=== PATIENT | female | born 1985 | race Caucasian/White ===

== ENCOUNTER 2016-04-14 05:44 | Emergency (ER) | payer MEDICAID, OTHER ==
[2016-04-14 05:54] VITALS: BP 119/83
[2016-04-14 06:32] LABS: Urine Bacteria Absent (Absent); Urine Bilirubin Negative (Negative); Urine Glucose Negative (Negative); Urine Nitrite Positive (Negative)
[2016-04-14] MEDS ORDERED: Phenazopyridine TAB* 100 MG PO ONE ×2 (06:42)
[2016-04-14] MEDS ORDERED: Sulfamethox/Trimethoprim DS 800/160* TAB PO ONE ×2 (06:42)
--- NOTE | 2016-04-17 08:10 | ED ---
GI/ HPI - HPI Summary HPI Summary: Pt here w/ UTI sx since early this morning - burning, frequency w/ urination. She gets these frequently if she doesn't perform her post coital cleaning regimen which she did not do recently. Denies fever, chills, flank pain, ab pain , N/V/D. No vaginal d/c. Has not tried anything yet - just wants to get tx started so she can feel better. - History of Current Complaint Chief Complaint: EDUrogenitalProblems Time Seen by Provider: 04/14/16 06:35 Stated Complaint: BLOODY URINE/BURNING Hx Obtained From: Patient Pain Intensity: 7 - Allergy/Home Medications Allergies/Adverse Reactions: Allergies Allergy/AdvReac Type Severity Reaction Status Date / Time No Known Allergies Allergy Verified 04/04/15 09:20 PMH/Surg Hx/FS Hx/Imm Hx Previously Healthy: Yes Endocrine/Hematology History: Denies: Hx Diabetes, Hx Thyroid Disease, Autoimmune Disease Cardiovascular History: Denies: Hx Hypertension Respiratory History: Denies: Hx Asthma, Hx Chronic Obstructive Pulmonary Disease (COPD) GI History: Denies: Hx Ulcer History: Reports: Hx Kidney Infection Denies: Hx Kidney Stones Infectious Disease History: No Infectious Disease History: Denies: Hx Hepatitis, Hx Human Immunodeficiency Virus (HIV), History Other Infectious Disease, Traveled Outside the [place] in Last 30 Days - Family History Known Family History: Positive: Hypertension - Social History Lives: With Family Alcohol Use: Daily Alcohol Amount: a glass of wine Hx Substance Use: No Substance Use Type: Reports: None Smoking Status (MU): Current Every Day Smoker Type: Cigarettes Amount Used/How Often: 1/2 ppd Have You Smoked in the Last Year: Yes Review of Systems Negative: Fever, Chills Negative: Sore Throat Negative: Chest Pain Negative: Shortness Of Breath Gastrointestinal: Negative Positive: see HPI Musculoskeletal: Negative Skin: Negative Neurological: Negative Psychological: Normal All Other Systems Reviewed And Are Negative: Yes Physical Exam Triage Information Reviewed: Yes Vital Signs On Initial Exam: Initial Vitals Temp Pulse Resp BP Pulse Ox 97.9 F 97 18 119/83 99 04/14/16 05:48 04/14/16 05:48 04/14/16 05:48 04/14/16 05:48 04/14/16 05:48 Vital Signs Reviewed: Yes Appearance: Positive: Well-Appearing, No Pain Distress, Well-Nourished Skin: Positive: Warm, Dry Head/Face: Positive: Normal Head/Face Inspection Eyes: Positive: Normal, EOMI, Conjunctiva Clear - anicteric sclera ENT: Positive: Hearing grossly normal, Pharynx normal - mucosa moist Respiratory/Lung Sounds: Positive: Clear to Auscultation, Breath Sounds Present Cardiovascular: Positive: Normal, RRR Abdomen Description: Positive: Nontender, No Organomegaly, Soft. Negative: CVA Tenderness (R), CVA Tenderness (L) Bowel Sounds: Positive: Present Pelvic Exam: Positive: other - deferred Musculoskeletal: Positive: Normal, Strength/ROM Intact Neurological: Positive: Normal, Sensory/Motor Intact, Alert, Oriented to Person Place, Time, CN Intact II-III Psychiatric: Positive: Normal - [place] Coma Scale Coma Scale Total: 15 Diagnostics - Vital Signs Vital Signs Temp Pulse Resp BP Pulse Ox 04/14/16 05:48 97.9 F 97 18 119/83 99 - Laboratory Lab Results: Lab Results 04/14/16 Range/Units 06:00 Urine Color [place] Urine Appearance Cloudy Urine pH 5.0 (5-9) Ur Specific [place] 1.018 (1.010-1.030) Urine Protein 2+(100 mg/dl) H (Negative) Urine Ketones Negative (Negative) Urine Blood 3+ H (Negative) Urine Nitrate Positive H (Negative) Urine Bilirubin Negative (Negative) Urine Urobilinogen Negative (Negative) Ur Leukocyte Esterase 3+ H (Negative) Urine WBC (Auto) 3+(>20/hpf) H (Absent) Urine RBC (Auto) 3+(>10/hpf) H (Absent) Ur Squamous Epith Cells Present H (Absent) Urine Bacteria Absent (Absent) Urine Glucose Negative (Negative) Lab Statement: Any lab studies that have been ordered have been reviewed, and results considered in the medical decision making process. GIGU Course/Dx - Diagnoses Provider Diagnoses: UTI (urinary tract infection) Discharge - Discharge Plan Condition: Stable Disposition: HOME Prescriptions: Sulfamethox/Trimethoprim DS* [Bactrim DS 800/160 TAB*] 1 tab PO BID #9 tab Patient Education Materials: Urinary Tract Infection in Women (ED) Referrals: [facility] [Outside] No Primary Care Phys,NOPCP [Primary Care Provider] - Additional Instructions: Follow-up with PCP if symptoms persist or worsen. *If you develop fever, chills, ab pain, back pain, return to ED
--- NOTE | 2016-04-17 08:11 | ED ---
Progress - Progress Note Progress Note: Pt's urine cx reveals e. coli bacteria - she was started on basctrim DS to which organism is sensitive. No change in medication. Complete course and f/u as directed. Course/Dx - Diagnoses Provider Diagnoses: UTI (urinary tract infection)
== END 2016-04-14 06:54 | disposition home or self-care (01) ==
LOC: ED 05:44
DX: N39.0 Urinary tract infection, site not specified (principal); B96.20 Unspecified Escherichia coli [E. coli] as the cause of diseases classified elsewhere; F17.210 Nicotine dependence, cigarettes, uncomplicated
CPT/HCPCS: 81003; 81015; 87077; 87086; 87186; 99282; A9270-GY

== ENCOUNTER 2016-07-19 11:59 | Emergency (ER) | payer MEDICAID ==
--- NOTE | 2016-07-19 12:54 | UC ---
Dizzy HPI HPI Summary: patient was traveling in a car, started to feel very lightheaded and dizzy. has hx of IBS, has had some diarrhea the past few days was experiencing some GI cramping and became very dizzy.. Po intake has been minimal, patient is worried she is dehydrated.Since her arrival she is not feeling dizzy anymore. she is tolerating water well - History Of Current Complaint Chief Complaint: UCAbdominalPain Stated Complaint: ABD PAIN AND LIGHTHEADED Time Seen by Provider: 07/19/16 12:39 Hx Obtained From: Patient Hx Last Menstrual Period: 07/11/16 took morning after pill ?: No Onset/Duration: Sudden Onset, Lasting Minutes Timing: Minutes Severity Initially: Severe Severity Currently: Mild Character: Lightheaded, Weak Aggravating Factor(s): Exertion Alleviating Factor(s): Rest, Lying Down - Allergies/Home Medications Allergies/Adverse Reactions: Allergies Allergy/AdvReac Type Severity Reaction Status Date / Time No Known Allergies Allergy Verified 04/04/15 09:20 Home Medications: Home Medications NK [No Home Medications Reported] 07/19/16 [History Confirmed 07/19/16] PMH/Surg Hx/FS Hx/Imm Hx Previously Healthy: Yes Endocrine History Of: Denies: Diabetes, Thyroid Disease Cardiovascular History Of: Denies: Cardiac Disorders, Hypertension Respiratory History Of: Denies: COPD, Asthma GI/ History Of: Denies: Ulcer, Kidney Stones - Surgical History Surgical History: None - Family History Known Family History: Positive: Hypertension - Social History Alcohol Use: Weekly Alcohol Amount: a glass of wine Substance Use Type: None Smoking Status (MU): Current Every Day Smoker Type: Cigarettes Amount Used/How Often: 1/2 ppd Length of Time of Smoking/Using Tobacco: would like RX for Chantix Have You Smoked in the Last Year: Yes Household Exposure Type: Cigarettes - Immunization History Most Recent Influenza Vaccination: 03/03/14 Most Recent Tetanus Shot: 03/27/14 Most Recent Pneumonia Vaccination: none Review of Systems Constitutional: Negative Skin: Negative Eyes: Negative ENT: Negative Respiratory: Negative Cardiovascular: Negative Gastrointestinal: Abdominal Pain, Diarrhea Genitourinary: Negative Motor: Negative Neurovascular: Negative Musculoskeletal: Negative Neurological: Negative Psychological: Negative All Other Systems Reviewed And Are Negative: Yes Physical Exam Triage Information Reviewed: Yes Appearance: No Pain Distress, Well-Nourished, Ill-Appearing Vital Signs: Initial Vital Signs Temp 99.6 F 07/19/16 12:09 Pulse 110 07/19/16 12:09 Resp 18 07/19/16 12:09 BP 106/75 07/19/16 12:09 Pulse Ox 100 07/19/16 12:09 Vital Signs Reviewed: Yes Eye Exam: Normal Eyes: Positive: Conjunctiva Clear ENT Exam: Normal ENT: Positive: Normal ENT inspection, Hearing grossly normal, Pharynx normal, TMs normal Dental Exam: Normal Neck exam: Normal Neck: Positive: Supple, Nontender, No Lymphadenopathy Respiratory Exam: Normal Respiratory: Positive: Chest non-tender, Lungs clear, Normal breath sounds Cardiovascular Exam: Normal Cardiovascular: Positive: No Murmur, Pulses Normal, Tachycardia Abdominal Exam: Normal Abdomen Description: Positive: Nontender, No Organomegaly, Soft Bowel Sounds: Positive: Present Musculoskeletal Exam: Normal Musculoskeletal: Positive: Strength Intact, ROM Intact, No Edema Neurological Exam: Normal Neurological: Positive: Alert, Muscle Tone Normal Psychological Exam: Normal Skin Exam: Normal Dizzy Course/Dx - Course Course Of Treatment: Hx obtained, exam performed,meds reviewed, UA pos Ket, pro , and elevated spec gravitiy, EKG showed sinus rythm with a rate of 89. patient Urine preg was negative. she has rested, taken Po fluids with good results. recommend rest and hydration. follow up with any further episodes. - Differential Dx/Diagnosis Differential Diagnosis/HQI/PQRI: Anxiety, Hypovolemia, Vasovagal Reaction, Other - dehydration Provider Diagnoses: dizzyness. deydration. possible vasovagal response Discharge - Discharge Plan Condition: Stable Disposition: HOME Patient Education Materials: Dehydration (ED) Additional Instructions: 1. Increase your fluid intake 2. Get some rest 3. Follow up with any reoccuring epidsodes. If you experience this again, immediately put your head between your legs to see if the dizziness is relieved.
[2016-07-19 12:57] VITALS: BP 114/72
== END 2016-07-19 13:07 | disposition home or self-care (01) ==
LOC: UCEAST 11:59
DX: R42 Dizziness and giddiness (principal); E86.0 Dehydration; F17.210 Nicotine dependence, cigarettes, uncomplicated
CPT/HCPCS: 81003; 84702; 93005; 99212; G0463

== ENCOUNTER 2016-07-21 10:35 | Emergency (ER) | payer MEDICAID, OTHER ==
[2016-07-21] MEDS ORDERED: NS 0.9% 1000 ML* 1,000 ML IV ONE (12:01)
[2016-07-21 12:27] LABS: Hematocrit 46 % (35-47); Hemoglobin 15.2 g/dl (12.0-16.0); Mean Corpuscular HGB Conc 33 g/dl (31-36); Mean Corpuscular Hemoglobin 30 pg (27-31); Mean Corpuscular Volume 91 fL (80-97); Mean Platelet Volume 8 um3 (7.4-10.4); Red Blood Count 4.99 10^6/ul (4.0-5.4); Red Cell Distribution Width 15 % (10.5-15); White Blood Count 10.2 10^3/ul (3.5-10.8)
[2016-07-21 12:29] LABS: Urine Bilirubin Negative (Negative); Urine Glucose Negative (Negative); Urine Nitrite Negative (Negative)
[2016-07-21 12:44] LABS: ALT 10 U/L (7-52); AST 13 U/L (13-39); Albumin 4.6 g/dL (3.2-5.2); Alkaline Phosphatase 43 U/L (34-104); Anion Gap 5 mmol/L (2-11); BUN/Creatinine Ratio 14.9 (8-20); Blood Urea Nitrogen 11 mg/dL (6-24); CO2 Carbon Dioxide 27 mmol/L (22-32); Calcium 9.9 mg/dL (8.6-10.3); Chloride 104 mmol/L (101-111); Creatine Kinase 38 U/L (10-223); EGFR African American 118.5 (>60); EGFR Non-African American 92.1 (>60); Globulin 2.8 g/dL (2-4); Glucose 99 mg/dL (70-100); Magnesium 2.1 mg/dL (1.9-2.7); Sodium 136 mmol/L (133-145); Total Protein 7.4 g/dL (6.4-8.9)
[2016-07-21 12:54] LABS: TSH (Thyroid Stimulating Horm) 0.93 mcIU/mL (0.34-5.60)
--- NOTE | 2016-07-21 13:04 | RAD ---
INDICATION: Headaches. Syncope. COMPARISON: None TECHNIQUE: Noncontrast axial source images were acquired from the skull base to the vertex. FINDINGS: Ventricles/sulci: The ventricles and cisterns are normal in size and configuration for age. Brain parenchyma: There is no focal parenchymal finding, evidence of intracranial mass, or intracranial mass effect. Intracranial hemorrhage:None. Extra-axial spaces: There are no abnormal extra axial fluid collections or evidence of extra-axial mass. Calvarium: There is no calvarial fracture or other calvarial abnormality. Scalp: There is no evidence of scalp or extracalvarial soft tissue abnormality. Paranasal sinuses/mastoid: The paranasal sinuses and mastoid air cells are clear. Other: None. IMPRESSION: NEGATIVE EXAMINATION
[2016-07-21 14:27] VITALS: BP 108/66
--- NOTE | 2016-07-21 17:28 | ED ---
charleen Barnes Timothy, scribed for Jann Guzman MD on 07/21/16 at 1200 . Headache - HPI Summary HPI Summary: Alyce Paredes is a 31 yo female presenting to [facility] with lightheadedness for the past 3 days with mild nausea and 3/10 stabbing intermittent frontal OKEEFE. she has one episode once per day. She states when she has this episode she feels like her heart speeds up. She states she has had OKEEFE for the past 2 weeks intermittently, but the lightheadedness is new in the past 3 days. She has been lethargic since the OKEEFE began. She states she has to lie down, as she is unsteady and staggers a little. She states that she has noticed that this happens after she smokes. She is not photophobic, and denies any spinning sensation. She denies any CP, SOB, or urinary Sx. She states she took plan B 2 weeks ago. She denies any trauma. Her MHx includes IBS, migraine, tobacco use. - History Of Current Complaint Chief Complaint: EDDizziness Stated Complaint: LIGHTHEADED/DIZZY/HEADACHE Time Seen by Provider: 07/21/16 11:48 Hx Obtained From: Patient Hx Last Menstrual Period: 07/11/16 took morning after pill Onset/Duration: Gradual Onset, Started days ago Initially Headache Was: Initial Pain Scale(0-10)= - 3 Currently Pain Is: Current Pain Scale(0-10)= - 3 Timing: Intermittent, Lasting:, Seconds Character: Sharp - stabbing Location of Headache: Frontal Allevating Factors: Rest Associated Signs And Symptoms: Nausea, Other (Noted In Comments) - lightheadedness, lethargic - Allergies/Home Medications Allergies/Adverse Reactions: Allergies Allergy/AdvReac Type Severity Reaction Status Date / Time No Known Allergies Allergy Verified 04/04/15 09:20 PMH/Surg Hx/FS Hx/Imm Hx Endocrine/Hematology History: Denies: Hx Diabetes, Hx Thyroid Disease Cardiovascular History: Denies: Hx Hypertension Respiratory History: Denies: Hx Asthma, Hx Chronic Obstructive Pulmonary Disease (COPD) GI History: Reports: Hx Irritable Bowel Denies: Hx Ulcer History: Reports: Hx Kidney Infection Denies: Hx Kidney Stones Neurological History: Reports: Hx Migraine - Immunization History Date of Tetanus Vaccine: unknown Date of Influenza Vaccine: NO Infectious Disease History: No Infectious Disease History: Denies: Hx Clostridium Difficile, Hx Hepatitis, Hx Human Immunodeficiency Virus (HIV), Hx of Known/Suspected MRSA, Hx Shingles, Hx Tuberculosis, Hx Known/ Suspected VRE, Hx Known/Suspected VRSA, History Other Infectious Disease, Traveled Outside the [place] in Last 30 Days - Family History Known Family History: Positive: Cardiac Disease, Hypertension, Diabetes - Social History Alcohol Use: Weekly Alcohol Amount: a glass of wine Hx Substance Use: No Substance Use Type: Reports: None Smoking Status (MU): Current Every Day Smoker Type: Cigarettes Amount Used/How Often: 1/2 ppd Length of Time of Smoking/Using Tobacco: would like RX for Chantix Have You Smoked in the Last Year: Yes Review of Systems Constitutional: Negative Eyes: Negative ENT: Negative Positive: Palpitations. Negative: Chest Pain Respiratory: Negative Negative: Shortness Of Breath Positive: Nausea. Negative: Vomiting, Diarrhea Genitourinary: Negative Musculoskeletal: Negative Skin: Negative Neurological: Other - lethargy, lightheadedness Positive: Headache Psychological: Normal All Other Systems Reviewed And Are Negative: Yes Physical Exam - Summary Physical Exam Summary: The patient is well-nourished in no acute distress and in no acute pain. The skin is warm and dry and skin color reflects adequate perfusion. HEENT: The head is normocephalic and atraumatic. The pupils are equal and reactive. The conjunctivae are clear and without drainage. Nares are patent and without drainage. Mouth reveals moist mucous membranes and the throat is without erythema and exudate. The external ears are intact. The ear canals are patent and without drainage. The tympanic membranes are intact. Thyroid is not enlarged. Neck is supple with full range of motion and non-tender. There are no carotid bruits. There is no neck vein distension. Respiratory: Chest is non-tender. Lungs are clear to auscultation and breath sounds are symmetrical and equal. Cardiovascular: Hear is regular rate and rhythm. There is no murmur or rub auscultated, there is an occasional ectopy. There is no peripheral edema and pulses are symmetrical and equal. Abdomen: The abdomen is soft and non-tender. There are normal bowel sounds heard in all four quadrants and there is no organomegaly palpated. Musculoskeletal: There is no back pain noted. Extremities are non-tender with full range of motion. There is good capillary refill. There is no peripheral edema or calf tenderness elicited. Neurological: Patient is alert and oriented to person, place and time. The patient has symmetrical motor strength in all four extremities. Cranial nerves are grossly intact. Deep tendon reflexes are symmetrical and equal in all four extremities. No motor drift. Psychiatric: The patient has an appropriate affect and does not exhibit any anxiety or depression. Triage Information Reviewed: Yes Vital Signs On Initial Exam: Initial Vitals Temp Pulse Resp BP Pulse Ox 99.4 F 85 16 132/93 100 07/21/16 10:42 07/21/16 10:42 07/21/16 10:42 07/21/16 10:42 07/21/16 10:42 Vital Signs Reviewed: Yes - [place] Coma Scale Coma Scale Total: 15 Diagnostics - Vital Signs Vital Signs Temp Pulse Resp BP Pulse Ox 07/21/16 11:04 74 18 07/21/16 10:44 98.9 F 84 20 132/93 100 07/21/16 10:42 99.4 F 85 16 132/93 100 - Laboratory Lab Results: Lab Results 07/21/16 07/21/16 07/21/16 Range/Units 12:15 12:15 12:15 WBC 10.2 (3.5-10.8) 10^3/ul RBC 4.99 (4.0-5.4) 10^6/ul Hgb 15.2 (12.0-16.0) g/dl Hct 46 (35-47) % MCV 91 (80-97) fL MCH 30 (27-31) pg MCHC 33 (31-36) g/dl RDW 15 (10.5-15) % Plt Count 295 (150-450) 10^3/ul MPV 8 (7.4-10.4) um3 Neut % (Auto) 74.9 (38-83) % Lymph % (Auto) 20.8 L (25-47) % [place] % (Auto) 3.7 (1-9) % Eos % (Auto) 0.3 (0-6) % Baso % (Auto) 0.3 (0-2) % Absolute Neuts (auto) 7.6 (1.5-7.7) 10^3/ul Absolute Lymphs (auto) 2.1 (1.0-4.8) 10^3/ul Absolute Monos (auto) 0.4 (0-0.8) 10^3/ul Absolute Eos (auto) 0 (0-0.6) 10^3/ul Absolute Basos (auto) 0 (0-0.2) 10^3/ul Absolute Nucleated RBC 0.01 10^3/ul Nucleated RBC % 0.1 Sodium 136 (133-145) mmol/L Potassium 4.0 (3.5-5.0) mmol/L Chloride 104 (101-111) mmol/L Carbon Dioxide 27 (22-32) mmol/L Anion Gap 5 (2-11) mmol/L BUN 11 (6-24) mg/dL Creatinine 0.74 (0.51-0.95) mg/dL Est GFR ( Amer) 118.5 (>60) Est GFR (Non-Af Amer) 92.1 (>60) BUN/Creatinine Ratio 14.9 (8-20) Glucose 99 (70-100) mg/dL POC Glucose (mg/dL) (74-106) mg/dL Lactic Acid (0.5-2.0) mmol/L Calcium 9.9 (8.6-10.3) mg/dL Magnesium 2.1 (1.9-2.7) mg/dL Total Bilirubin 0.60 (0.2-1.0) mg/dL AST 13 (13-39) U/L ALT 10 (7-52) U/L Alkaline Phosphatase 43 (34-104) U/L Total Creatine Kinase 38 (10-223) U/L Total Protein 7.4 (6.4-8.9) g/dL Albumin 4.6 (3.2-5.2) g/dL Globulin 2.8 (2-4) g/dL Albumin/Globulin Ratio 1.6 (1-3) TSH 0.93 (0.34-5.60) mcIU/mL Beta HCG, Quant < 0.60 mIU/mL Urine Color Yellow Urine Appearance Clear Urine pH 7.0 (5-9) Ur Specific [place] 1.005 L (1.010-1.030) Urine Protein Negative (Negative) Urine Ketones Negative (Negative) Urine Blood Negative (Negative) Urine Nitrate Negative (Negative) Urine Bilirubin Negative (Negative) Urine Urobilinogen Negative (Negative) Ur Leukocyte Esterase Negative (Negative) Urine Glucose Negative (Negative) 07/21/16 07/21/16 Range/Units 12:15 12:23 WBC (3.5-10.8) 10^3/ul RBC (4.0-5.4) 10^6/ul Hgb (12.0-16.0) g/dl Hct (35-47) % MCV (80-97) fL MCH (27-31) pg MCHC (31-36) g/dl RDW (10.5-15) % Plt Count (150-450) 10^3/ul MPV (7.4-10.4) um3 Neut % (Auto) (38-83) % Lymph % (Auto) (25-47) % [place] % (Auto) (1-9) % Eos % (Auto) (0-6) % Baso % (Auto) (0-2) % Absolute Neuts (auto) (1.5-7.7) 10^3/ul Absolute Lymphs (auto) (1.0-4.8) 10^3/ul Absolute Monos (auto) (0-0.8) 10^3/ul Absolute Eos (auto) (0-0.6) 10^3/ul Absolute Basos (auto) (0-0.2) 10^3/ul Absolute Nucleated RBC 10^3/ul Nucleated RBC % Sodium (133-145) mmol/L Potassium (3.5-5.0) mmol/L Chloride (101-111) mmol/L Carbon Dioxide (22-32) mmol/L Anion Gap (2-11) mmol/L BUN (6-24) mg/dL Creatinine (0.51-0.95) mg/dL Est GFR ( Amer) (>60) Est GFR (Non-Af Amer) (>60) BUN/Creatinine Ratio (8-20) Glucose (70-100) mg/dL POC Glucose (mg/dL) 93 (74-106) mg/dL Lactic Acid 0.8 (0.5-2.0) mmol/L Calcium (8.6-10.3) mg/dL Magnesium (1.9-2.7) mg/dL Total Bilirubin (0.2-1.0) mg/dL AST (13-39) U/L ALT (7-52) U/L Alkaline Phosphatase (34-104) U/L Total Creatine Kinase (10-223) U/L Total Protein (6.4-8.9) g/dL Albumin (3.2-5.2) g/dL Globulin (2-4) g/dL Albumin/Globulin Ratio (1-3) TSH (0.34-5.60) mcIU/mL Beta HCG, Quant mIU/mL Urine Color Urine Appearance Urine pH (5-9) Ur Specific [place] (1.010-1.030) Urine Protein (Negative) Urine Ketones (Negative) Urine Blood (Negative) Urine Nitrate (Negative) Urine Bilirubin (Negative) Urine Urobilinogen (Negative) Ur Leukocyte Esterase (Negative) Urine Glucose (Negative) Result Diagrams: 07/21/16 12:15 07/21/16 12:15 Lab Statement: Any lab studies that have been ordered have been reviewed, and results considered in the medical decision making process. - CT Brain CT Interpretation: No Acute Changes - IMPRESSION: NEGATIVE EXAMINATION CT Interpretation Completed By: Radiologist - EKG 1242 Cardiac Rate: NL - 69 BPM EKG Interpretation: NSR @ 69 BPM, normal axis, no ST changes, normal EKG. Re-Evaluation - Re-Evaluation First Eval Re-Evaluation Time: 14:15 Change: Unchanged Comment: Pt is informed of results of her lab and imaging studies. She is agreeable to the current course of Tx. She will follow up with the provided PCP. Headache Course/Dx - Course Assessment/Plan: Alyce Paredes is a 31 yo female presenting to [facility] with 3 /10 intermittent OKEEFE for the past 2 weeks, with lightheadedness once per day accompanied by palpitations for the last 3 days. She received IV fluids in the ED. Her EKG was normal. Her Brain CT suggests negative examination. After clinical examination and reviewof her imaging and lab studies, she will be discharged home with near syncope and weakness with appropriate instructions. - Diagnoses Provider Diagnoses: Near syncope, Weakness, headache Discharge - Discharge Plan Condition: Stable Disposition: HOME Patient Education Materials: Near Syncope (ED), Weakness (ED) Referrals: [facility] [place] [facility] [Outside] - 2 Days Additional Instructions: Please follow up with the primary care physician provided regarding your visit to the emergency department today. Return to the emergency department with any new or recurring symptoms. The documentation as recorded by the charleen [email or web address] accurately reflects the service I personally performed and the decisions made by me, Jann Guzman MD.
== END 2016-07-21 14:37 | disposition home or self-care (01) ==
LOC: ED 10:35
DX: R55 Syncope and collapse (principal); R53.1 Weakness; R51 Headache; F17.210 Nicotine dependence, cigarettes, uncomplicated
CPT/HCPCS: 36415; 70450; 80053; 81003; 82550; 83605; 83735; 84443; 84702; 85025; 93005; 99282

== ENCOUNTER 2017-05-10 09:39 | Emergency (ER) | payer OTHER ==
[2017-05-10 09:59] VITALS: BP 116/73
--- NOTE | 2017-05-10 11:33 | UC ---
Throat Pain/Nasal Marty HPI - HPI Summary HPI Summary: 9 days of worsening nasal congestion with thick green and blood streaked nasal drainage - History of Current Complaint Chief Complaint: UCRespiratory Stated Complaint: URI Time Seen by Provider: 05/10/17 11:31 Hx Obtained From: Patient ?: Yes - 31 weeks Onset/Duration: Gradual Onset, Lasting Days - 9, Still Present Severity: Moderate Pain Intensity: 0 Pain Scale Used: 0-10 Numeric Cough: Productive Associated Signs & Symptoms: Positive: Sinus Discomfort, Nasal Discharge - Allergies/Home Medications Allergies/Adverse Reactions: Allergies Allergy/AdvReac Type Severity Reaction Status Date / Time No Known Allergies Allergy Verified 05/10/17 09:59 Home Medications: Home Medications Guaifenesin/Pseudo 600/60(NF) [Mucinex D 600/60 (NF)] 2 tab PO Q12H 05/10/17 [ History Confirmed 05/10/17] Vit No.129/Iron/Folic [ One Daily Tablet] 1 tab PO 05/10/17 [ History] PMH/Surg Hx/FS Hx/Imm Hx Previously Healthy: Yes - Surgical History Surgical History: None - Family History Known Family History: Positive: Cardiac Disease, Hypertension, Diabetes - Social History Occupation: Employed Full-time Lives: With Family Alcohol Use: None Alcohol Amount: a glass of wine Substance Use Type: None Smoking Status (MU): Former Smoker Have You Smoked in the Last Year: Yes Household Exposure Type: Cigarettes - Immunization History Most Recent Influenza Vaccination: [id number] Most Recent Tetanus Shot: 03/27/14 Most Recent Pneumonia Vaccination: none Review of Systems Constitutional: Negative Skin: Negative Eyes: Negative ENT: Nasal Discharge, Sinus Congestion, Sinus Pain/Tenderness Respiratory: Cough Cardiovascular: Negative Gastrointestinal: Negative Genitourinary: Negative Motor: Negative Neurovascular: Negative Musculoskeletal: Negative Neurological: Negative Psychological: Negative Is Patient Immunocompromised?: No All Other Systems Reviewed And Are Negative: Yes Physical Exam Triage Information Reviewed: Yes Appearance: Well-Appearing, No Pain Distress, Well-Nourished Vital Signs: Initial Vital Signs Temp 99.2 F 05/10/17 09:55 Pulse 96 05/10/17 09:55 Resp 18 05/10/17 09:55 BP 116/73 05/10/17 09:55 Pulse Ox 98 05/10/17 09:55 Vital Signs Reviewed: Yes Eye Exam: Normal Eyes: Positive: Conjunctiva Clear ENT Exam: Normal ENT: Positive: Normal ENT inspection, Hearing grossly normal, Pharynx normal, Nasal congestion, Nasal drainage, TMs normal, Sinus tenderness, Uvula midline. Negative: Tonsillar swelling, Tonsillar exudate, Trismus, Muffled voice, Hoarse voice, Dental tenderness Dental Exam: Normal Neck exam: Normal Neck: Positive: Supple, Nontender, No Lymphadenopathy Respiratory Exam: Normal Respiratory: Positive: Chest non-tender, Lungs clear, Normal breath sounds, No respiratory distress, No accessory muscle use Cardiovascular Exam: Normal Cardiovascular: Positive: RRR, No Murmur, Pulses Normal, Brisk Capillary Refill Musculoskeletal Exam: Normal Musculoskeletal: Positive: Strength Intact, ROM Intact, No Edema Neurological Exam: Normal Neurological: Positive: Alert, Muscle Tone Normal Psychological Exam: Normal Skin Exam: Normal Throat Pain/Nasal Course/Dx - Course Assessment/Plan: amoxicillin, mucinex, flonase, tylenol, increase fluid follow with pcp - Differential Dx/Diagnosis Provider Diagnoses: Acute rhinosinusitis Discharge - Discharge Plan Condition: Stable Disposition: HOME Prescriptions: Amoxicillin PO (*) [Amoxicillin 875 MG (*)] 875 mg PO BID #20 tab Fluticasone NASAL SPRAY 50MCG* [Flonase NASAL SPRAY 50MCG*] 2 spray BOTH NARES DAILY #1 btl Patient Education Materials: Sodium Chloride (Into the nose), Rhinosinusitis ( ED), How to Use Nasal [place] (ED) Referrals: [facility] [Outside] - If Needed
== END 2017-05-10 11:53 | disposition home or self-care (01) ==
LOC: UCEAST 09:39
DX: J01.90 Acute sinusitis, unspecified (principal); Z87.891 Personal history of nicotine dependence
CPT/HCPCS: 99212; G0463

== ENCOUNTER 2017-07-17 01:53 | Inpatient (IN) | payer OTHER ==
[2017-07-17 03:40] LABS: Hematocrit 34 % (35-47); Hemoglobin 11.3 g/dl (12.0-16.0); Mean Corpuscular HGB Conc 34 g/dl (31-36); Mean Corpuscular Hemoglobin 28 pg (27-31); Mean Corpuscular Volume 85 fL (80-97); Mean Platelet Volume 8.7 um3 (7.4-10.4); Platelet Count 416 10^3/ul (150-450); Red Blood Count 3.98 10^6/ul (4.0-5.4); Red Cell Distribution Width 15 % (10.5-15); White Blood Count 18.8 10^3/ul (3.5-10.8)
[2017-07-17] MEDS ORDERED: OBEPIDURAL* 0 ML EPIDURAL ONE (04:21)
[2017-07-17] MEDS ORDERED: fentaNYL* 50 MCG/ML 2 ML VIAL (100 MCG VIAL) ONE (04:22)
[2017-07-17] MEDS ORDERED: Oxytocin in LR* 20 UNITS/1,000 ML BAG IVPB ONE (04:39)
[2017-07-17] MEDS ORDERED: Acetaminophen TAB* 325 MG PO PRN (05:11)
[2017-07-17] MEDS ORDERED: Glycerin ADULT SUPP PR PRN (05:11)
[2017-07-17] MEDS: Dibucaine 1% 28.35 GM TUBE PR PRN (08:05)
[2017-07-17] MEDS: Ibuprofen TAB* 600 MG PO PRN ×2 (08:05→13:39)
[2017-07-17] MEDS ORDERED: Simethicone TAB* 80 MG TAB.CHEW PO SCH (08:30)
[2017-07-17] MEDS: Docusate CAP* 100 MG PO SCH ×2 (13:39→20:50)
[2017-07-17] MEDS: Witch Hazel PAD* JAR TOPICAL PRN (13:41)
[2017-07-18 06:18] LABS: ABS Basophils 0 10^3/ul (0-0.2); ABS Eosinophils 0.1 10^3/ul (0-0.6); ABS Lymphocytes 4.8 10^3/ul (1.0-4.8); ABS Monocytes 0.8 10^3/ul (0-0.8); ABS Neutrophils 8.7 10^3/ul (1.5-7.7); ABS Nucleated RBC 0 10^3/ul; Eosinophil % 0.9 % (0-6); Hematocrit 26 % (35-47); Hemoglobin 8.8 g/dl (12.0-16.0); Lymphocyte % 33.1 % (25-47); Mean Corpuscular HGB Conc 33 g/dl (31-36); Mean Corpuscular Hemoglobin 29 pg (27-31); Mean Corpuscular Volume 86 fL (80-97); Mean Platelet Volume 8.7 um3 (7.4-10.4); Nucleated Red Blood Cells % 0; Platelet Count 348 10^3/ul (150-450); Red Blood Count 3.09 10^6/ul (4.0-5.4); Red Cell Distribution Width 15 % (10.5-15); White Blood Count 14.4 10^3/ul (3.5-10.8)
[2017-07-18] MEDS: Ibuprofen TAB* 600 MG PO PRN (07:51)
[2017-07-18] MEDS: Docusate CAP* 100 MG PO SCH (07:51)
[2017-07-18 08:09] VITALS: BP 112/66
[2017-07-18] MEDS ORDERED: Ferrous Gluconate TAB* 324 MG TAB PO SCH (09:00)
[2017-07-18] MEDS: Dibucaine 1% 28.35 GM TUBE PR PRN (09:01)
[2017-07-18] MEDS: Witch Hazel PAD* JAR TOPICAL PRN (09:01)
== END 2017-07-18 11:02 | disposition home or self-care (01) | DRG 560 ==
LOC: MCHOBOUT 01:53 → MCHOB 02:50
PROVIDERS: ADMIT Midwife; ATTEND Midwife
PROC: 10E0XZZ Delivery of Products of Conception, External Approach (ICD-10-PCS; principal; 2017-07-17)
DX: O70.0 First degree perineal laceration during delivery (principal); O90.81 Anemia of the puerperium; D64.9 Anemia, unspecified; Z3A.39 39 weeks gestation of pregnancy; Z37.0 Single live birth
CPT/HCPCS: 36415; 85025; 85027; 86850; 86900; 86901; A9270-GY; J3010

== ENCOUNTER 2017-08-17 13:02 | Emergency (ER) | payer SELFPAY ==
[2017-08-17 13:17] VITALS: BP 111/73
--- NOTE | 2017-08-17 14:12 | UC ---
Kylie Barnes Gabriel, scrib[facility] for [facility]ah[facility] MD on 08/17/17 at 1342 . Palpitation/Dysrhythmia HP - HPI Summary HPI Summary: This patient is a 32 year old F presenting to [facility] [place] with a chief complaint of palpitations that began on 08-15-17. She describes it as an anxious, racing, increased heart rate without a trigger, and lasting a few minutes. When this occurs she feels tightness in her chest and it occurs several times a day. It has not happened before although, she had post- anemia which caused her to have similar symptoms with exertion. Today, it began at 1000 this morning and she has had multiple episodes since. She denies SOB but feels like she needs to take a deep breath while it is happening. The patient rates the pain 0 /10 in severity. Patient reports dizziness, general malaise, intermittent OKEEFE, light headedness, chest tightness, and anxiety. Patient denies SOB, ringing in her ears, cough, n/v/d, and cold symptoms. . No similar sx with first . Pt has had lyme disease twice in the past but did not have palpitations with the infection. She states the episodes begin with tightness in her chest, then she feels like she needs to take a deep breath, and a wave of anxiety hits her causing her heart to race. note: vital signs stable, pulse ox 98. 4 weeks post-. Heavy smoker. Nurses note: Pt states for last 08/15/17 she began having episodes of her heart racing, shortness of breat and dizziness. Pt states she currently feels a little dizzy. Pt states she feels a sense f "uneasy". Pt complains of intermitent headache. Pt states she is currently 4 weeks post -vaginal delivery. Pt states she was slighty anemic at d/c from OB at [facility] [place]. Pt denies any complications during delivery. Pt currently breast feeding. - History of Current Complaint Chief Complaint: UCGeneralIllness Stated Complaint: SOB, DIZZY, CHEST COMPLAINT Hx Obtained From: Patient Hx Last Menstrual Period: pt 4 weeks post Onset/Duration: Still Present Timing: Constant Severity Initially: Mild Severity Currently: Mild Pain Intensity: 0 Pain Scale Used: 0-10 Numeric Associated Signs & Symptoms: Positive: Dizzy, Chest Pain - tightness - Allergy/Home Medications Allergies/Adverse Reactions: Allergies Allergy/AdvReac Type Severity Reaction Status Date / Time No Known Allergies Allergy Verified 08/17/17 13:09 PMH/Surg Hx/FS Hx/Imm Hx Cardiovascular History: Other Other Cardiovascular History: post- anemia Other History Of: Negative For: Hepatitis C, Anticoagulant Therapy - Surgical History Surgical History: None - Family History Known Family History: Positive: Cardiac Disease, Hypertension, Diabetes - Social History Occupation: Employed Full-time Lives: With Family Alcohol Use: Occasionally Alcohol Amount: a glass of wine Substance Use Type: None Smoking Status (MU): Heavy Every Day Tobacco Smoker Type: Cigarettes Amount Used/How Often: 1/2 ppd Length of Time of Smoking/Using Tobacco: 1/2ppd Have You Smoked in the Last Year: Yes Household Exposure Type: Cigarettes - Immunization History Most Recent Influenza Vaccination: [id number] Most Recent Tetanus Shot: 03/27/14 Most Recent Pneumonia Vaccination: none Review of Systems Constitutional: Other - general malaise Cardiovascular: Palpitations, Chest Pain - tightness Neurological: Headache - intermittent, Other - dizziness, light headedness Psychological: Anxious All Other Systems Reviewed And Are Negative: Yes - Comments Additional Review of Systems Comments: Positive: palpitations, dizziness, general malaise, intermittent OKEEFE, light headedness, chest tightness, and anxiety Negative: SOB, n/v/d, ringing in her ears, cough, and cold symptoms. Physical Exam - Summary Physical Exam Summary: Appearance: The patient is well-appearing, is in no pain distress, and is well- nourished. Eyes: Conjunctiva are clear. ENT: The hearing is grossly normal, the pharynx is normal, and the TMs are normal. There is no muffled or hoarse voice. Neck: The neck is supple and there is no lymphadenopathy. Respiratory: The chest is nontender. The lungs are clear, there are normal breath sounds, and there is no respiratory distress. Cardiovascular: Heart is regular rate and rhythm. There is no murmur. Abdomen: The abdomen is soft and nontender. There is no organomegaly. Bowel sounds: present Musculoskeletal: Strength is intact. The patient moves all extremities.NO CALF TENDERNESS, NEGATIVE DEBORA Neurological: The patient is alert. Psychological: The patient displays age appropriate behavior Skin: Negative for rashes Triage Information Reviewed: Yes Vital Signs: Initial Vital Signs Temp 98.5 F 08/17/17 13:09 Pulse 76 08/17/17 13:09 Resp 18 08/17/17 13:09 BP 111/73 08/17/17 13:09 Pulse Ox 98 08/17/17 13:09 Vital Signs Reviewed: Yes Diagnostics - EKG Cardiac Rate: NL - taken at 1304 Cardiac Rhythm: Sinus: Normal - at 75 BPM, Other Rhythm: New - no acute ischemia Palpitations Course/Dx - Course Course Of Treatment: The pt is health 32 y/o female. Who one month ago had a normal vaginal of her second child. Shortly after delivery she noted some racing heart and SOB which resolved. Approx. 3 days ago she began feeling brief episodes of her heart racing, of inability to take a full breath, and mild, transient chest discomfort. These episodes resolved after a few minutes but beginning 4 hours ago she noted repeat episodes. She states she has hx of anemia and perhaps is dehydrated and she has a prior dx of lymes twice. She denies lyme carditits. She recognizes the condition may be due to anxiety. But these episodes are not usual to her and did not occur after he first child, her home situation sounds stable. She has no hx of blood clots or of PE. She denies a family history of clotting abnormalities. Her EKG at [facility] was sinus rhythm without ischemia. Vital signs were stable. I discussed with the pt various options and she has chosen to follow up in the ED for further testing evaluation and treatment as appropriate. Medications have been included in the original chart and reviewed. - Differential Dx/Diagnosis Differential Diagnosis/HQI/PQRI: Other - anemia vs lymes disease vs paroxysmal super ventricular tachycardia vs blood clot vs anxiety Provider Diagnoses: transient palpitations and SOB in 32 y/o female 4 weeks post Discharge - Sign-Out/Discharge Documenting (check all that apply): Discharge/Admit/Transfer - Discharge Plan Condition: Stable Disposition: HOME Patient Education Materials: Heart Palpitations (ED), Shortness of Breath (ED) Referrals: Amarjit Nguyen MD [Primary Care Provider] - Additional Instructions: WE DISCUSSED: 1. GO DIRECTLY TO ED. 2. Your increasing number of episodes of heart racing and shortness of breath may be due to anxiety or to a physical process such as anemia, dehydration, or a blood clot. 3. Your EKG did not show a heart rate that was too slow or to fast or that suggested poor circulation. - Billing Disposition and Condition Condition: STABLE Disposition: Home The documentation as recorded by the Kylie zelaya Gabriel accurately reflects the service I personally performed and the decisions made by me, Nahid Hernandez MD.
== END 2017-08-17 14:11 | disposition home or self-care (01) ==
LOC: UCEAST 13:02
DX: O99.89 Other specified diseases and conditions complicating pregnancy, childbirth and the puerperium (principal); O99.345 Other mental disorders complicating the puerperium; O99.335 Smoking (tobacco) complicating the puerperium; R00.2 Palpitations; R06.02 Shortness of breath; R42 Dizziness and giddiness; R53.81 Other malaise; R51 Headache; R07.89 Other chest pain; F41.9 Anxiety disorder, unspecified; F17.210 Nicotine dependence, cigarettes, uncomplicated
CPT/HCPCS: 93005; 99212; G0463

== ENCOUNTER 2017-08-17 14:30 | Emergency (ER) | payer SELFPAY ==
--- NOTE | 2017-08-17 16:26 | RAD ---
Indication: Palpitations. 2 views of the chest including dual energy PA views demonstrate no mediastinal shift. Heart is of normal size and configuration. Lung anglin appear clear. IMPRESSION: No active cardiopulmonary disease is noted.
[2017-08-17 16:49] LABS: INR 0.94 (0.77-1.02)
[2017-08-17 16:50] LABS: ABS Basophils 0 10^3/ul (0-0.2); ABS Eosinophils 0.2 10^3/ul (0-0.6); ABS Monocytes 0.4 10^3/ul (0-0.8); ABS Neutrophils 4.2 10^3/ul (1.5-7.7); ABS Nucleated RBC 0 10^3/ul; Eosinophil % 1.9 % (0-6); Hematocrit 42 % (35-47); Hemoglobin 13.8 g/dl (12.0-16.0); Lymphocyte % 45.4 % (25-47); Mean Corpuscular HGB Conc 33 g/dl (31-36); Mean Corpuscular Hemoglobin 29 pg (27-31); Mean Corpuscular Volume 87 fL (80-97); Mean Platelet Volume 8.3 um3 (7.4-10.4); Nucleated Red Blood Cells % 0.1; Platelet Count 403 10^3/ul (150-450); Red Blood Count 4.81 10^6/ul (4.0-5.4); Red Cell Distribution Width 16 % (10.5-15); White Blood Count 8.8 10^3/ul (3.5-10.8)
[2017-08-17 17:00] LABS: EGFR Non-African American 75.9 (>60)
[2017-08-17 18:21] VITALS: BP 123/75
--- NOTE | 2017-08-18 01:32 | ED ---
Juni Barnes Elizabeth, scribed for Araceli Hutchinson MD on 08/17/17 at 1650 . Palpitations / Dysrhythmia - HPI Summary HPI Summary: This patient is a 32 year old F who is 4 weeks post presenting to [facility] upon referral from Dr. Hernandez from [facility] with a chief complaint of increased intermittent palpitations, lightheadedness, and shortness of breath since 3 days ago. The patient notes that she had similar symptoms after she was discharged from the hospital 4 weeks ago but she has not had the symptoms again until 3 days ago. The patient notes that the symptoms typically only last a few minutes at a time. The patient rates the pain 0/10 in severity. Symptoms aggravated by nothing. Symptoms alleviated by deep breaths. The patient also reports recent headaches but notes that this typical for her during this time of year due to her seasonal allergies. Patient denies any cardiac hx but notes she was diagnosed with anemia following the of her son and she has been taking an iron supplement. The patient is 4 weeks and is . When in room, the patients HR was 65 bpm, BP was 116/71, and SPO2 was 100. The patient smokes pack of cigarettes daily. Patient notes a family hx of cardiac disease, MS, and breast CA. - History of Current Complaint Chief Complaint: EDDysrhythmPalp Time Seen by Provider: 08/17/17 15:31 Hx Obtained From: Patient, Medical Records - Dr. Hernandez from urgent care's record Onset/Duration: Sudden Onset, Lasting Minutes, Resolved Timing: Intermittent Episodes Lasting: - few minutes Severity Initially: Mild Severity Currently: Mild Character: Fast Aggravating: Nothing Alleviating: Other - deep breaths Associated Signs & Symptoms: Lightheadedness, Shortness of Breath - Risk Factors Pulmonary Embolism: - 4 weeks post , Smoking - Allergy/Home Medications Allergies/Adverse Reactions: Allergies Allergy/AdvReac Type Severity Reaction Status Date / Time No Known Allergies Allergy Verified 08/17/17 14:43 PMH/Surg Hx/FS Hx/Imm Hx Endocrine/Hematology History: Reports: Hx Anemia Denies: Hx Anticoagulant Therapy, Hx Diabetes, Hx Thyroid Disease Cardiovascular History: Denies: Hx Hypertension Respiratory History: Reports: Hx Seasonal Allergies Denies: Hx Asthma, Hx Chronic Obstructive Pulmonary Disease (COPD) GI History: Reports: Hx Irritable Bowel Denies: Hx Ulcer History: Reports: Hx Kidney Infection Denies: Hx Kidney Stones Neurological History: Reports: Hx Migraine - Surgical History Surgery Procedure, Year, and Place: none - Immunization History Date of Tetanus Vaccine: unknown Date of Influenza Vaccine: NO Infectious Disease History: No Infectious Disease History: Denies: Hx Clostridium Difficile, Hx Hepatitis, Hx Human Immunodeficiency Virus (HIV), Hx of Known/Suspected MRSA, Hx Shingles, Hx Tuberculosis, Hx Known/ Suspected VRE, Hx Known/Suspected VRSA, History Other Infectious Disease, Traveled Outside the [place] in Last 30 Days - Family History Known Family History: Positive: Cardiac Disease - her grandfather, Hypertension , Diabetes, Other - breast CA, MS (mother) - Social History Lives: With Family Alcohol Use: Occasionally Alcohol Amount: a glass of wine approx 2 times weekly Hx Substance Use: No Substance Use Type: Reports: None Smoking Status (MU): Heavy Every Day Tobacco Smoker Type: Cigarettes Amount Used/How Often: 1/2 ppd Length of Time of Smoking/Using Tobacco: 1/2ppd Have You Smoked in the Last Year: Yes Review of Systems Constitutional: Negative Positive: Palpitations Positive: Shortness Of Breath Gastrointestinal: Negative Genitourinary: Negative Positive: no symptoms reported Musculoskeletal: Negative Skin: Negative Neurological: Other - lightheadedness Positive: Headache Psychological: Normal All Other Systems Reviewed And Are Negative: Yes Physical Exam - Summary Physical Exam Summary: Appearance: Well-appearing, no pain distress, well-nourished, tearful at times, as this is her first time away from her 4 week old infant Skin: Warm, color reflects adequate perfusion, dry Head: Normal Head/Face inspection, atraumatic Eyes: Conjunctiva clear ENT: Normal inspection Neck: Supple, no nodes, no JVD Respiratory: Lungs clear, normal breath sounds, no respiratory distress Cardio: RRR, No murmur, pulses normal, brisk capillary refill Abdomen: Soft, nontender Bowel sounds: Present Musculoskeletal: Strength Intact/ROM intact, no calf tenderness, no edema. Psychological: Normal Neuro: Alert, muscle tone normal, no focal deficit Triage Information Reviewed: Yes Vital Signs On Initial Exam: Initial Vitals Temp Pulse Resp BP Pulse Ox 97.8 F 65 17 121/68 100 08/17/17 14:40 08/17/17 14:40 08/17/17 14:40 08/17/17 14:40 08/17/17 14:40 Vital Signs Reviewed: Yes Diagnostics - Vital Signs Vital Signs Temp Pulse Resp BP Pulse Ox 08/17/17 16:36 100 08/17/17 16:11 58 14 100 08/17/17 14:40 97.8 F 65 17 121/68 100 - Laboratory Result Diagrams: 08/17/17 16:32 08/17/17 16:30 Lab Statement: Any lab studies that have been ordered have been reviewed, and results considered in the medical decision making process. - Radiology CXR Xray Interpretation: No Acute Changes - IMPRESSION: No active cardiopulmonary disease is noted. Dr. Hutchinson has reviewed this report. Radiology Interpretation Completed By: Radiologist - EKG 15:49 Cardiac Rate: NL - at 60 BPM EKG Rhythm: Sinus Rhythm ST Segment: Normal Ectopy: None EKG Interpretation: nml AV IV CT, nml QTC, nml axis, and no acute changes EKG Comparison: No Significant Change - compared with EKG from 07/21/16 Re-Evaluation - Re-Evaluation First Eval Re-Evaluation Time: 18:00 Change: Improved Comment: no further palpitations. Advised of test results showing no evidence of DVT, or even anemia, or cardiac abnormality. Pt agrees to discharge. Advised to DC smoking. Course/Dx - Course Course Of Treatment: Patient who is 4 wks post and hx anemia referred from , reports intermittent episodes of palpitations, shortness of breath, and lightheadedness in the last 3 days. An EKG reveals sinus rhythm at 60 bpm with nml AV IV CT, nml QTC, nml axis, and no acute changes. EKG shows no changes compared with EKG from 07/21/16. CXR reveals, per radiologist, no active cardiopulmonary disease. ED physician has reviewed this radiology report. Test results including d dimer and troponin, show no significant abnormalities, including no anemia. Patient will be discharged home with dx of heart palpitations and is advised to follow up with Dr. Nguyen in 2 days. Pt prefers to take her vitamins while nursing, rather than the FeSO4, so she is advised that she may do this. The patient is agreeable with this plan. - Diagnoses Differential Diagnosis/HQI/PQRI: Positive: Hypokalemia, Hyperventilation, Mitral Valve Prolapse, Myocarditis, Pulmonary Embolism, Other - anemia induced tachycardia, volume depletion, orthostatic hypotension Provider Diagnoses: Palpitations Discharge - Sign-Out/Discharge Documenting (check all that apply): Discharge/Admit/Transfer - home - Discharge Plan Condition: Stable Disposition: HOME Patient Education Materials: Heart Palpitations (ED) Referrals: Amarjit Nguyen MD [Primary Care Provider] - 2 Days Additional Instructions: Your test did not show any significant abnormalities. Follow up with Dr. Nguyen in 2 days. Return to the emergency department with any new or worsening symptoms. - Billing Disposition and Condition Condition: STABLE Disposition: Home The documentation as recorded by the Juni zelaya Elizabeth accurately reflects the service I personally performed and the decisions made by , Araceli Hutchinson MD.
== END 2017-08-17 18:20 | disposition home or self-care (01) ==
LOC: ED 14:30
DX: O90.89 Other complications of the puerperium, not elsewhere classified (principal); R00.2 Palpitations; O99.335 Smoking (tobacco) complicating the puerperium; F17.210 Nicotine dependence, cigarettes, uncomplicated
CPT/HCPCS: 36415; 71046; 80053; 82550; 82553; 83605; 83735; 83880; 84443; 84484; 85025; 85379; 85610; 93005; 99283

== ENCOUNTER 2018-03-16 10:38 | Emergency (ER) | payer OTHER ==
[2018-03-16 10:57] VITALS: BP 129/80
--- NOTE | 2018-03-16 11:38 | UC ---
Cardiac HPI - HPI Summary HPI Summary: PATIENT HAS HAD ABOUT 1 WEEK OF DIFFUSE CHEST TIGHTNESS THAT SHE OCCASIONALLY FEELS IN HER BACK. SHE HAD A SIMILAR EPISODE ABOUT 5 MONTHS AGO AND HAD A FULL CARDIAC WORKUP IN THE ER WHICH WAS NEGATIVE. PATIENT HAS HAD UNDERLYING ANXIETY SINCE SHE WAS A TEENAGER. WAS PREVIOUSLY ON MEDICATION BUT HAS BEEN OFF FOR YEARS SINCE SHE WAS DOING SO WELL. PATIENT GAVE TO HER SECOND CHILD ABOUT 8 MONTHS AGO AND SINCE THEN HER SYMPTOMS HAVE BEEN WORSENING. SHE IS NOW EXPERIENCING DAILY OVERWHELMING ANXIETY AT WORK, AT HOME AND IN SOCIAL SITUATIONS. SHE IS INTERESTED IN RESTARTING HER MEDICATION AND WILL BE CALLING HER PCP OFFICE TOMORROW. WAS ENCOURAGED BY HER TO COME IN FOR EVALUATION TODAY. PATIENT IS NOT CONCERNED ABOUT CARDIAC ETIOLOGY." JUST WANTS TO MAKE SURE THAT HER "VITAL SIGNS LOOKED OKAY". - History of Current Complaint Chief Complaint: UCChestPain Stated Complaint: CHEST DISCOMFORT Time Seen by Provider: 03/16/18 10:41 Hx Obtained From: Patient Hx Last Menstrual Period: Onset/Duration: Sudden Onset, Lasting Weeks, Still Present Timing: Constant Initial Severity: Moderate Current Severity: Moderate Pain Intensity: 6 Character: Tightness Aggravating Factor(s): Nothing Alleviating Factor(s): Nothing Associated Signs & Symptoms: Positive: Chest Pain, Anxiety, Recent Stress. Negative: Dizziness, SOB, Swelling, Fever, Nausea/Vomiting, Palpitations - Allergy/Home Medications Allergies/Adverse Reactions: Allergies Allergy/AdvReac Type Severity Reaction Status Date / Time No Known Allergies Allergy Verified 03/16/18 11:13 Home Medications: Home Medications Norethindrone (NF) [Ksenia (NF)] 1 tab PO DAILY 03/16/18 [History Confirmed 04/03] PMH/Surg Hx/FS Hx/Imm Hx Psychological History: Anxiety Other History Of: Negative For: Hepatitis C, Anticoagulant Therapy - Surgical History Surgical History: None Surgery Procedure, Year, and Place: none - Family History Known Family History: Positive: Cardiac Disease - her grandfather, Hypertension , Diabetes, Other - breast CA, MS (mother) - Social History Alcohol Use: Occasionally Alcohol Amount: a glass of wine approx 2 times weekly Substance Use Type: None Smoking Status (MU): Heavy Every Day Tobacco Smoker Type: Cigarettes Amount Used/How Often: 1/2 ppd Length of Time of Smoking/Using Tobacco: 1/2ppd Have You Smoked in the Last Year: Yes Household Exposure Type: Cigarettes - Immunization History Most Recent Influenza Vaccination: 7301-0056 Most Recent Tetanus Shot: 03/27/14 Most Recent Pneumonia Vaccination: none Review of Systems All Other Systems Reviewed And Are Negative: Yes Constitutional: Positive: Negative Respiratory: Positive: Negative Cardiovascular: Positive: Chest Pain Gastrointestinal: Positive: Negative Psychological: Positive: Anxious Physical Exam Triage Information Reviewed: Yes Appearance: Well-Appearing, No Pain Distress, Well-Nourished Vital Signs: Initial Vital Signs Temp 99.3 F 03/16/18 10:53 Pulse 98 03/16/18 10:53 Resp 16 03/16/18 10:53 BP 129/80 03/16/18 10:53 Pulse Ox 98 03/16/18 10:53 Vital Signs Reviewed: Yes Eyes: Positive: Conjunctiva Clear ENT: Positive: Hearing grossly normal, Pharynx normal, TMs normal Neck: Positive: Supple, Nontender, No Lymphadenopathy Respiratory Exam: Normal Cardiovascular Exam: Normal Abdomen Description: Positive: Soft Musculoskeletal: Positive: No Edema Neurological: Positive: Alert Psychological: Positive: Age Appropriate Behavior Skin: Negative: Rashes Diagnostics - Radiology CXR Radiology Interpretation Completed By: Radiologist Summary of Radiographic Findings: UNREMARKABLE - EKG Cardiac Rate: NL - 74 BPM Cardiac Rhythm: Sinus: Normal Ectopy: None ST Segment: Normal - Assessment/Plan Course Of Treatment: LOW SUSPICION FOR CARDIAC ETIOLOGY. PATIENT ENDORSES A HISTORY OF ANXIETY SINCE HER TEENAGE YEARS FOR WHICH SHE WAS PREVIOUSLY ON MEDICATION. STATES HER SYMPTOMS HAVE HAD A RESURGENCE SINCE THE OF HER SECOND CHILD 8 MONTHS AGO. WILL BE FOLLOWING UP WITH HER PCP TO REINSTATE MEDICATION BUT JUST WANTED TO COME TODAY TO GET CHECKED OUT. I ADVISED HER THAT I WAS UNABLE TO DEFINITIVELY RULE OUT ANY CARDIAC ETIOLOGY. SHE VERBALIZES UNDERSTANDING AND STATES THAT SHE IS NOT CONCERNED ABOUT CARDIAC CAUSES BUT IS HERE ON THE ENCOURAGEMENT OF HER . WE'LL GIVE A SMALL AMOUNT OF ATIVAN TO HELP PATIENT WITH HER SYMPTOMS. STATES SHE HAS TOLERATED THIS WELL IN THE PAST. FOLLOW-UP WITH PCP WITHIN A WEEK. - Clinical Impression Provider Diagnosis: Anxiety Discharge - Sign-Out/Discharge Documenting (check all that apply): Patient Departure All imaging exams completed and their final reports reviewed: Yes - Discharge Plan Condition: Stable Disposition: HOME Prescriptions: LORazepam TAB(*) [Ativan 0.5 MG TAB (*)] 0.5 mg PO BID PRN #10 tab MDD 2 PRN Reason: Anxiety Patient Education Materials: Anxiety (ED) Referrals: Amarjit Nguyen MD [Primary Care Provider] - 1 Week Additional Instructions: YOUR EKG TODAY WAS UNREMARKABLE. CHEST X-RAY UNREMARKABLE. YOUR SYMPTOMS ARE LIKELY CAUSED BY YOUR UNDERLYING ANXIETY ALTHOUGH WE DISCUSSED I AM UNABLE TO RULE OUT ANY UNDERLYING CARDIAC ETIOLOGY. YOU HAVE DECLINED TRANSFER TO THE ED TODAY WHICH I THINK IS REASONABLE BASED ON YOUR HISTORY BUT YOU MUST GO TO THE ED WITHOUT FAIL IF YOU DEVELOP WORSENING CHEST PAIN, SHORTNESS OF BREATH, NAUSEA, FEVER, DIZZINESS OR ANY OTHER CONCERNING SYMPTOMS. CALL DR. GRAHAM'S OFFICE TOMORROW TO SCHEDULE A FOLLOW-UP APPOINTMENT JOHNNY TO FURTHER DISCUSS TREATMENT OF YOUR ANXIETY. I WOULD ALSO CALL YOUR INSURANCE COMPANY TO SEE WHAT COUNSELORS IN THE AREA ARE COVERED MEDICATION AND COUNSELING TOGETHER ARE OFTEN MORE EFFECTIVE THAN ANY ONE OF THESE INTERVENTIONS IN ISOLATION. WE'LL GIVE A FEW ATIVAN FOR YOU TO USE FOR ACUTE TREATMENT OF YOUR SYMPTOMS UNTIL YOU'RE ABLE TO SEE DR. GRAHAM. BE AWARE THAT THIS IS NOT A LONG-TERM SOLUTION FOR YOUR ANXIETY AND MEDICATION NEEDS TO BE TAKEN SPARINGLY AND WITH CAUTION. - Billing Disposition and Condition Condition: STABLE Disposition: Home
== END 2018-03-16 12:02 | disposition home or self-care (01) ==
LOC: UCEAST 10:38
DX: F41.9 Anxiety disorder, unspecified (principal); R07.89 Other chest pain; F17.210 Nicotine dependence, cigarettes, uncomplicated
CPT/HCPCS: 71046; 93005; 99212; G0463

== ENCOUNTER 2018-12-05 10:06 | Emergency (ER) | payer OTHER ==
[2018-12-05 10:24] VITALS: BP 120/82
--- NOTE | 2018-12-05 10:48 | UC ---
Respiratory Complaint HPI - HPI Summary HPI Summary: Patient is 33 year old female , who presents today to the urgent care with sinus and chest congestion for more than 10 days. She has tried [id number] Mucinex and Benadryl without much relief. Overall symptoms are worsening. She has postnasal drip and cough. Denies any fevers. Denies any fever, chills, chest pain or shortness of breath . Denies any abdominal pain , nausea or vomiting , diarrhea or constipation. - History of Current Complaint Chief Complaint: UCRespiratory Stated Complaint: CONGESTED Time Seen by Provider: 12/05/18 10:40 Hx Obtained From: Patient Hx Last Menstrual Period: 11/14/18 Pain Intensity: 6 - Allergies/Home Medications Allergies/Adverse Reactions: Allergies Allergy/AdvReac Type Severity Reaction Status Date / Time No Known Allergies Allergy Verified 12/05/18 10:25 Home Medications: Home Medications Acetaminophen [Tylenol] 650 mg PO Q6HR 12/05/18 [History Confirmed 12/05/18] PMH/Surg Hx/FS Hx/Imm Hx - Additional Past Medical History Additional PMH: Past Medical History : Anxiety Past Surgical History: No Past History of Procedure Family History : non contributory Social History : Occasional alcohol, daily smoker, no drug use. [id number] mom. Previously Healthy: Yes Other History Of: Negative For: Hepatitis C, Anticoagulant Therapy - Surgical History Surgical History: None Surgery Procedure, Year, and Place: none - Family History Known Family History: Positive: Cardiac Disease - her grandfather, Hypertension , Diabetes, Other - breast CA, MS (mother), Non-Contributory - Social History Alcohol Use: Occasionally Alcohol Amount: a glass of wine approx 2 times weekly Substance Use Type: None Smoking Status (MU): Heavy Every Day Tobacco Smoker Type: Cigarettes Amount Used/How Often: 1/2 ppd Length of Time of Smoking/Using Tobacco: 1/2ppd Have You Smoked in the Last Year: Yes Household Exposure Type: Cigarettes - Immunization History Most Recent Influenza Vaccination: [id number] Most Recent Tetanus Shot: 03/27/14 Most Recent Pneumonia Vaccination: none Review of Systems All Other Systems Reviewed And Are Negative: Yes Constitutional: Positive: Negative Skin: Positive: Negative Eyes: Positive: Negative ENT: Positive: Sinus Congestion, Sinus Pain/Tenderness, Other - Postnasal drip Respiratory: Positive: Cough Cardiovascular: Positive: Negative Gastrointestinal: Positive: Negative Genitourinary: Positive: Negative Motor: Positive: Negative Neurovascular: Positive: Negative Musculoskeletal: Positive: Negative Neurological: Positive: Negative Psychological: Positive: Negative Is Patient Immunocompromised?: No Physical Exam - Summary Physical Exam Summary: Physical Exam: Const: Appears well. No signs of apparent distress present. Alert and oriented x 3. Musculo: Walks with a normal gait. Head/Face: Atraumatic, normocephalic on inspection. Eyes: EOMI and PERRLA in both eyes. Conjunctivae clear. No discharge noted ENT: Hearing normal, TM normal appearing bilaterally There is tenderness to palpation on maxillary and frontal sinus. No pharyngeal erythema or exudates . Uvula is midline. No cervical or submandibular lymphadenopathy noted. Respiratory: Respirations are unlabored. There is rhonchi noted in bilateral lung anglin, no wheezing , rales noted . CVS: Regular rate and Rhythm, S1S2 normal , no murmurs identified. Extremities: Peripheral circulation is grossly normal. Pulses 2+ Abdomen : Soft non tender , nondistended , Bowel sounds present . No guarding , rebound tenderness or rigidity noted. Skin: No lesions or rash located on the upper extremities or on the lower extremities. Neuro: Cranial nerves II to XII intact, motor and sensory intact. DTR Intact bilaterally. Mood is normal. Affect is normal. Triage Information Reviewed: Yes Vital Signs: Initial Vital Signs Temp 98.6 F 12/05/18 10:18 Pulse 82 12/05/18 10:18 Resp 16 12/05/18 10:18 BP 120/82 12/05/18 10:18 Pulse Ox 96 12/05/18 10:18 Vital Signs Reviewed: Yes Respiratory Course/Dx - Course Course Of Treatment: During the visit today, we discussed the findings and her symptoms appear to be consistent with sinusitis along with bronchitis/atypical pneumonia and plan to treat it with azithromycin. I will prescribe the medication to the pharmacy . Patient expressed understanding . - Differential Dx/Diagnosis Provider Diagnosis: Bronchitis, Atypical pneumonia, Sinusitis Discharge ED - Sign-Out/Discharge Documenting (check all that apply): Patient Departure All imaging exams completed and their final reports reviewed: No Studies - Discharge Plan Condition: Stable Disposition: HOME Prescriptions: Azithromyxin SENIA (NF) [Z-Senia (Zithromax) 250 mg tabs #6] 2 tab PO .TODAY, THEN 1 DAILY #6 tab Loratadine/Pseudoephedrine [Claritin-D 24 Hour 10-240 mg] 1 tab PO DAILY 10 Days #10 tab Patient Education Materials: Sinusitis (ED), Acute Bronchitis (ED) [place]: [facility] [place]] - 1 Week No Primary Care Phys,NOPCP [Primary Care Provider] - Additional Instructions: Please start taking the medication as prescribed to the pharmacy . Follow up with your primary care doctor in 1 week Return to Urgent care / ER if symptoms get worse. - Billing Disposition and Condition Condition: STABLE Disposition: Home
== END 2018-12-05 11:08 | disposition home or self-care (01) ==
LOC: UCEAST 10:06
DX: J18.9 Pneumonia, unspecified organism (principal); F41.9 Anxiety disorder, unspecified; F17.210 Nicotine dependence, cigarettes, uncomplicated
CPT/HCPCS: 99212; G0463